=== PATIENT | female | born 1995 | race African-American/Black ===

== ENCOUNTER → 2020-11-09 | Outpatient (CLI) | payer OTHER ==
[2020-11-09 17:08] LABS: HEMOGLOBIN 10.5 g/dl (12.0-15.5); MEAN CORPUSCULAR HEMOGLOBIN 30.3 pg (27.0-33.0); MEAN CORPUSCULAR HGB CONC 31.8 g/dl (32.0-36.5); MEAN CORPUSCULAR VOLUME 95.1 fl (80.0-96.0); PLATELET COUNT, AUTOMATED 291 10^3/uL (150-450); RED BLOOD COUNT 3.47 10^6/uL (4.00-5.40); WHITE BLOOD COUNT 8.3 10^3/uL (4.0-10.0)
[2020-11-09 17:19] LABS: HEMOGLOBIN A1c 4.3 %
[2020-11-09 20:22] LABS: GC DNA AMPLIFICATION NEGATIVE (NEGATIVE)
== END ==
LOC: M LAB 15:17
PROVIDERS: ATTEND Advanced Practice Midwife
DX: O34.211 Maternal care for low transverse scar from previous cesarean delivery (principal); Z3A.00 Weeks of gestation of pregnancy not specified

== ENCOUNTER → 2020-11-18 | Outpatient (CLI) | payer OTHER | LOC: M LAB 08:20 | PROVIDERS: ATTEND Advanced Practice Midwife | DX: Z36.89 Encounter for other specified antenatal screening (principal); Z3A.31 31 weeks gestation of pregnancy ==

== ENCOUNTER → 2020-12-17 | Outpatient (REF) | payer OTHER ==
[~2020-12-17] MED LIST: DOCU100C16 PO; IBUP80TA PO; IRON65TA2 PO; PERCOCET PO; PREN200C PO; PRENCHW PO
== END ==
LOC: M SFHCWAGY 16:56
PROVIDERS: ATTEND Obstetrics & Gynecology
DX: O34.211 Maternal care for low transverse scar from previous cesarean delivery (principal)
CPT/HCPCS: 87081; G0463

== ENCOUNTER 2020-12-31 04:21 | Outpatient (CLI) | payer OTHER ==
[~2020-12-31] VITALS: Ht 149.9 cm; Wt 90.9 kg
[~2020-12-31 04:21] MED LIST changes: -DOCU100C16 PO; -IBUP80TA PO; -PERCOCET PO; -PRENCHW PO
[2020-12-31 04:39] VITALS: BP 138/77
== END 2020-12-31 05:10 | disposition home or self-care (01) ==
LOC: M LDO 04:21
PROVIDERS: ATTEND Advanced Practice Midwife
DX: O36.8130 Decreased fetal movements, third trimester, not applicable or unspecified (principal); Z3A.38 38 weeks gestation of pregnancy
CPT/HCPCS: 59025; G0378; G0463

== ENCOUNTER → 2021-01-02 | Outpatient (CLI) | payer OTHER | LOC: M LABSMTC 11:40 | PROVIDERS: ATTEND Anesthesiology | DX: Z01.812 Encounter for preprocedural laboratory examination (principal) ==

== ENCOUNTER 2021-01-07 05:36 | Inpatient (IN) | payer OTHER ==
[2021-01-07] VITALS (10 sets, daily range): BP systolic 118–142; BP diastolic 60–78
[~2021-01-07] VITALS: Ht 149.9 cm; Wt 90.0 kg
[2021-01-07] MEDS ORDERED: ceFAZolin SOD 1 GM in D5W MINI-BAG PLUS 50 ML IV ONE ×4 (05:55)
[2021-01-07] MEDS ORDERED: LR 1,000 ML IV ONE (05:55)
[2021-01-07] MEDS ORDERED: LR 1,000 ML IV SCH ×2 (05:55→08:00)
[2021-01-07] MEDS ORDERED: BICITRA 30ML SOLN UDC PO ONE (05:55)
[2021-01-07] MEDS ORDERED: HOME MED LIST COMPLETE! XX SCH (05:55)
[2021-01-07 06:26] LABS: HEMATOCRIT 34.9 % (36.0-47.0); HEMOGLOBIN 11.3 g/dl (12.0-15.5); MEAN CORPUSCULAR HEMOGLOBIN 29.3 pg (27.0-33.0); MEAN CORPUSCULAR HGB CONC 32.4 g/dl (32.0-36.5); MEAN CORPUSCULAR VOLUME 90.4 fl (80.0-96.0); PLATELET COUNT, AUTOMATED 281 10^3/uL (150-450); RED BLOOD COUNT 3.86 10^6/uL (4.00-5.40); WHITE BLOOD COUNT 6.5 10^3/uL (4.0-10.0)
[2021-01-07] MEDS ORDERED: KETOROLAC 60MG 2ML VIAL As Ordered ONE (07:20)
[2021-01-07] MEDS ORDERED: dexameTHASONE 4 MG/ML 1ML VIAL (J1100 PER 1MG) As Ordered ONE ×2 (07:20→10:52)
[2021-01-07] MEDS ORDERED: OXYTOCIN INJ 10 UNITS/ML VIAL (J2590) As Ordered ONE (07:20)
[2021-01-07] MEDS ORDERED: ONDANSETRON 4MG/2ML VIAL As Ordered ONE ×2 (07:20→09:29)
[2021-01-07] MEDS ORDERED: fentaNYL 100 MCG/2 ML INJECTION (J3010) As Ordered ONE (07:21)
[2021-01-07] MEDS ORDERED: MORPHINE PRES-FREE INJ 10 MG/10 ML VIAL (J2274) As Ordered ONE (07:21)
[2021-01-07] MEDS ORDERED: METOCLOPRAMIDE INJ 10MG/2ML VIAL (J2765 PER 1) IV PRN (07:54)
[2021-01-07] MEDS ORDERED: ONDANSETRON 4MG/2ML VIAL IV PRN (07:54)
[2021-01-07] MEDS ORDERED: diphenhydrAMINE 50MG/ML VIAL (J1200) IV PRN (07:54)
[2021-01-07] MEDS ORDERED: NALBUPHINE HCL 10 MG/ML AMP (J2300) IV PRN (07:54)
[2021-01-07] MEDS ORDERED: NALOXONE INJ 0.4MG/1ML VIAL (J2310 PER 1MG) IV PRN ×2 (07:54)
[2021-01-07] MEDS ORDERED: MOM 30ML SUSPENSION UDC PO PRN (08:00)
[2021-01-07] MEDS ORDERED: OXYTOCIN DRIP 30 UNITS in IV 1 EA IV SCH (08:00)
[2021-01-07] MEDS ORDERED: PERCOCET 5MG/325MG TAB PO PRN (08:00)
[2021-01-07] MEDS ORDERED: RHOGAM 300 MCG (1500 IU) INJ (J2790) IM SCH (08:00)
[2021-01-07] MEDS ORDERED: MEASLES,MUMPS,RUBELLA VACCINE INJ (MMR-II) (90707) SC SCH (08:00)
[2021-01-07] MEDS ORDERED: SIMETHICONE 80MG CHEW TAB PO PRN (08:00)
--- NOTE | 2021-01-07 08:06 | ROOPDOC ---
[facility] Report Of Operation Report of Operation DATE OF PROCEDURE: 01/07/21 SURGEON: Melany Anderson M.D. CARTRIDGE GAUGER: Juan Montanez M.D. ( essential for tissue retractions, exposure and delivery of ) PROCEDURE: Repeat section PREOPERATIVE DIAGNOSIS: 1. History of prior section POSTOPERATIVE DIAGNOSIS: 1. History of prior section ANESTHESIA: Spinal ESTIMATED BLOOD LOSS: 500 mL URINE OUTPUT: 300 mL INTRAVENOUS FLUIDS: 2300 mL of lactated Ringer's solution PREOPERATIVE ANTIBIOTICS: 2 g of Ancef OPERATIVE FINDINGS: Liveborn female , Apgars 8 and 9. Weight 30 to 60 g or 7 pounds 3 ounces SPECIMENS: None DESCRIPTION OF PROCEDURE: After informed consent was obtained and written consent was reviewed. The patient was brought to the operating room where spinal anesthesia was placed. She was then placed in the supine position with a left lateral tilt. Persaud catheter was placed and to gravity. Patient was then prepped and draped in the normal sterile fashion. A timeout operating room was performed identifying the patient, procedure be performed as well as drug allergies. Anesthesia was tested and deemed to be adequate. Pfannenstiel skin incision was made and this was carried down to the underlying rectus fascia. The fascia was then scored and this incision was extended bilaterally. The fascia was then dissected off the underlying rectus muscle superiorly and inferiorly. The rectus muscles were then in the midline. The peritoneum is then entered. Vesicouterine peritoneum was then tented and excised and a bladder flap was created. Mobius retractor was then placed. Next, a curvilinear incision was then made in the lower uterine segment. Amniotomy was performed, productive, clear fluid. The head was brought to the level of the incision atraumatically and delivered along the shoulders and corpus. The cord was clamped x2. The was brought over to the warmer with a good cry. Placenta was drained and delivered grossly intact. The uterus was cleared of all clots and debris and the uterine incision was then closed using 0 Vicryl in a running locking fashion followed by a second layer of 0 Vicryl in a running nonlocking fashion for imbrication. The abdomen suctioned. Surgical sites reinspected and noted be hemostatic. The retractor was then removed. The anterior peritoneum was then reapproximated with 3-0 Vicryl. The rectus muscles were reapproximated 3-0 Vicryl. The fascia was then closed using 0 Vicryl in a running nonlocking fashion. The subcutaneous tissues was then irrigated and suctioned. Subcutaneous tissue was reapproximated using 3-0 Vicryl. Several subdermal stitch is placed using 3-0 Vicryl and the skin was closed with 4-0 Monocryl and subcuticular fashion. This incision was then cleaned and dried and was dressed. The patient was then taken to recovery in stable condition. All counts were correct. . My surgical elastic knitter hand frame played in an essential role during the operation. He assisted with tissue identification retraction, delivery of the , as well as wound closure. MELANY ANDERSON MD. Jan 07, 2021 08:06
[2021-01-07] MEDS ORDERED: ePHEDrine SULFATE 25 MG/5 ML(5MG/ML) SYRINGE As Ordered ONE (08:18)
[2021-01-07] MEDS: DOCUSATE SODIUM 100MG CAPSULE PO SCH ×2 (09:00→20:03)
[2021-01-07] MEDS: PRENATAL VITAMINS CHEWABLE TABLET PO SCH (09:00)
[2021-01-07] MEDS ORDERED: METOCLOPRAMIDE INJ 10MG/2ML VIAL (J2765 PER 1) As Ordered ONE (10:33)
[2021-01-07] MEDS ORDERED: METOCLOPRAMIDE INJ 10MG/2ML VIAL (J2765 PER 1) IV ONE (11:00)
[2021-01-07] MEDS ORDERED: dexameTHASONE 4 MG/ML 1ML VIAL (J1100 PER 1MG) IV ONE (11:00)
[2021-01-07] MEDS ORDERED: OXYTOCIN 30 UNITS IN 0.9% NaCl 500ML IV BAG (J2590) As Ordered ONE (11:09)
[2021-01-07] MEDS: KETOROLAC 30 MG/ML 1ML VIAL IV SCH ×2 (16:42→20:02)
[2021-01-08] VITALS (7 sets, daily range): BP systolic 108–139; BP diastolic 55–69
[2021-01-08] MEDS: KETOROLAC 30 MG/ML 1ML VIAL IV SCH (02:17)
[2021-01-08 07:21] LABS: HEMATOCRIT 28.6 % (36.0-47.0); MEAN CORPUSCULAR HEMOGLOBIN 29.4 pg (27.0-33.0); MEAN CORPUSCULAR HGB CONC 31.8 g/dl (32.0-36.5); MEAN CORPUSCULAR VOLUME 92.3 fl (80.0-96.0); PLATELET COUNT, AUTOMATED 268 10^3/uL (150-450); WHITE BLOOD COUNT 12.5 10^3/uL (4.0-10.0)
[2021-01-08 07:28] LABS: HEMOGLOBIN 9.1 g/dl (12.0-15.5)
[2021-01-08] MEDS: PERCOCET 5MG/325MG TAB PO PRN ×2 (08:33→23:32)
[2021-01-08] MEDS: DOCUSATE SODIUM 100MG CAPSULE PO SCH ×2 (08:34→21:00)
[2021-01-08] MEDS: PRENATAL VITAMINS CHEWABLE TABLET PO SCH (08:35)
[2021-01-08] MEDS: IBUPROFEN 800 MG TAB PO SCH ×2 (10:32→18:39)
[2021-01-09] MEDS: IBUPROFEN 800 MG TAB PO SCH (02:26)
[2021-01-09 02:28] VITALS: BP 103/58
[2021-01-09 06:00] VITALS: BP 109/57
[2021-01-09 07:51] VITALS: BP 139/69
[2021-01-09] MEDS ORDERED: INFLUENZA QUADRIVALENT PF VACCINE 0.5ML SYRINGE IM ONE (09:00)
[2021-01-09] MEDS: DOCUSATE SODIUM 100MG CAPSULE PO SCH (09:24)
[2021-01-09] MEDS: PERCOCET 5MG/325MG TAB PO PRN (09:24)
[2021-01-09] MEDS: PRENATAL VITAMINS CHEWABLE TABLET PO SCH (09:24)
[2021-01-09] MEDS ORDERED: IBUP80TA PO (10:43)
[2021-01-09] MEDS ORDERED: PERCOCET PO (10:43)
[2021-01-09] MEDS ORDERED: DOCU100C16 PO (10:43)
[2021-01-09] MEDS ORDERED: PRENCHW PO (10:43)
--- NOTE | 2021-01-09 12:31 | IPNPDOC ---
Progress Note Date of Service: Jan 09, 2021 Day#: 2 Progress Note SUBJECT: Patient is a 25-year-old G 3 P 2012 status post uncomplicated repeat section at 39-0/7 weeks' doing well day #2. She has been ambulating, voiding spontaneously without issue and tolerating regular diet. Breast feeding without issue. Reports lochia is like a normal period. Patient is ambulating well. Reports some cramping, well controlled with medication. Voiding and ambulating without difficulty. She is passing gas and has had a BM. OBJECTIVE: VITAL SIGNS: Within normal limits, afebrile. Alert and oriented times three. Breath sounds clear to auscultation. Heart rate: Regular rate and rhythm, no murmurs, rubs or gallops. Abdomen: Fundus firm at U-2. Soft, appropriately tender. Incision c/d/i Minimal to moderate lochia. ASSESSMENT: Patient is a 25-year-old G 3 P 2012 status post uncomplicated repeat section. Doing well on day 2. Vitals within normal limits, afebrile, hemodynamically stable with no evidence of infection. PLAN: 1. Discharge to home today. 2. Tylenol and Motrin for pain. 3. Encourage breast feeding and ambulation. 4. Patient desires patch for contraception to begin 6 weeks 5. Routine PP visit in 6 weeks in clinic. 6. Discussed return precautions at length. VS, I&O, 24H, Fishbone Vital Signs/I&O Vital Signs Date Time Temp Pulse Resp B/P (MAP) Pulse Ox O2 Delivery O2 Flow Rate FiO2 01/09/21 09:24 18 01/09/21 07:51 97.9 87 139/69 99 Room Air Laboratory Data 24H LABS Laboratory Tests 2 01/08/21 20:46: Serology Scanned Report Hepatitis B Testing JOHN CODY MD Jan 09, 2021 12:31
--- NOTE | 2021-01-09 13:00 | OBDS ---
[facility] Obstetrical Discharge Sum. 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 Date: Jan 09, 2021 Time: 12:54 : 3 Term: 2 Pre-term: 0 Abortions: 1 Livin VDRL: Non-Reactive Rh: Positive Rubella: Immune Delivery Repeat section Sex: Female Anesthesia: Regional Anesthesia A/P, Post Course List any complications Admission diagnosis: Scheduled section Discharge diagnosis: Condition at Discharge: stable Discharge Instructions: HOME Activity: As tolerated. Nothing in the vagina for 6 weeks. Diet: Regular Medications: ibuprofen PRN, percocet PRN Follow-up: Two week incision check JOHN CODY MD Jan 09, 2021 13:00
== END 2021-01-09 13:25 | disposition home or self-care (01) | DRG 773 ==
LOC: M LDI 05:36 → M PED 07:47 → M LDI 07:53 → M OBS 12:22
PROVIDERS: ADMIT Obstetrics & Gynecology; ATTEND Obstetrics & Gynecology
PROC: 10D00Z1 Extraction of Products of Conception, Low, Open Approach (ICD-10-PCS; principal; 2021-01-07 07:30)
DX: O34.211 Maternal care for low transverse scar from previous cesarean delivery (principal); Z3A.39 39 weeks gestation of pregnancy; Z37.0 Single live birth